=== PATIENT | female | born 1980 | race Caucasian/White ===

== ENCOUNTER 2020-01-08 09:58 | Outpatient (CLI) | payer OTHER, SELFPAY ==
--- NOTE | ~2020-01-08 | XR_ITS ---
XR chest 2V DATE: 01/08/2020 10:34 INDICATION: Chest pain, upper back pain, neck pain. Cannot swallow. TECHNIQUE: 2 views COMPARISON: 04/30/2017 two-view chest FINDINGS: Normal heart size. No hilar or mediastinal enlargement. No pulmonary infiltrate or consolid ation, pleural effusion or pulmonary vascular congestion or pneumothorax. IMPRESSION: Negative chest Reviewed, dictated and finalized at location B. IMPRESSION: Negative chest
--- NOTE | ~2020-01-08 | XR_ITS ---
EXAMINATION: XR thoracic spine 3V DATE: 01/08/2020 10:33 INDICATION: Back pain TECHNIQUE: AP, lateral and lateral swimmer's views of the thoracic spine were obtained. COMPARISON: 04/17/2017 FINDINGS: The vertebral body heights and alignment are normal. There is mild loss of intervertebral d isc space height at multiple levels in the thoracic spine. Small degenerative osteophytes project fro m the anterior endplates of multiple vertebral bodies. There is no fracture. IMPRESSION: 1. Mild thoracic spondylosis without acute findings or significant interval change. Reviewed, dictated and finalized at location A. IMPRESSION: 1. Mild thoracic spondylosis without acute findings or significant interval [facility].
--- NOTE | ~2020-01-08 | XR_ITS ---
EXAMINATION:XR_CERV2-3V_CR DATE: 01/08/2020 10:33 INDICATION: Neck pain TECHNIQUE: AP, lateral, and odontoid views of the cervical spine are provided. COMPARISON: 04/17/2017 FINDINGS: Alignment is normal. There is straightening of the cervical spine which can be positional o r due to muscular spasm. The odontoid is intact. No fracture is identified. Vertebral body heights an d disk spaces are normal. Prevertebral soft tissues are normal. Small degenerative osteophytes projec t from the anterior endplates of multiple vertebral bodies. IMPRESSION: 1. Mild cervical spondylosis without acute findings. Reviewed, dictated and finalized at location A.
[2020-01-08 10:10] LABS: Basophils Absolute Auto 0.02 K/mm3 (0.00-0.10); Basophils Percent Auto 0.3 % (0.0-1.0); Eosinophils Absolute Auto 0.07 K/mm3 (0.02-0.50); Eosinophils Percent Auto 0.9 % (1.0-6.0); Hematocrit 42.5 % (35.0-49.0); Hemoglobin 14.4 g/dL (12.0-15.0); Immature Granulocyte Absolute 0.06 K/mm3 (0.00-0.00); Immature Granulocyte Percent A 0.8 % (0.0-0.0); Lymphocytes Absolute Auto 1.45 K/mm3 (1.10-4.50); Lymphocytes Percent Auto 18.5 % (18.0-42.0); Mean Corpuscular HGB Conc 33.9 g/dL (32.0-36.0); Mean Corpuscular Hemoglobin 31.2 pg (27.0-31.0); Mean Platelet Volume 9.6 fl (9.2-11.8); Monocytes Absolute Auto 0.68 K/mm3 (0.10-0.90); Monocytes Percent Auto 8.7 % (2.0-11.0); Neutrophils Absolute Auto 5.6 K/mm3 (1.7-7.2); Neutrophils Percent Auto 70.8 % (50.0-70.0); Platelet Count Result 220 K/mm3 (150-420); Red Blood Count 4.62 M/mm3 (4.20-5.40); Red Cell Distribution Width 12.7 % (11.6-14.4); White Blood Count 7.8 K/mm3 (4.8-10.8)
== END 2020-01-08 09:59 | disposition home or self-care (01) ==
PROVIDERS: PCP Internal Medicine; Visit Provider Internal Medicine
DX: M54.2 Cervicalgia (principal); R07.9 Chest pain, unspecified; M54.6 Pain in thoracic spine
CPT/HCPCS: 36415; 71046; 72040; 72072; 85025

== ENCOUNTER 2020-01-09 09:17 | Outpatient (CLI) | payer OTHER, SELFPAY ==
--- NOTE | ~2020-01-09 | XR_ITS ---
XR barium swallow DATE: 01/09/2020 09:41 INDICATION: Acute dysphagia TECHNIQUE: Fluoroscopy and rapid sequence spot radiographs of the esophagus during swallowing 0.3 minutes fluoroscopy time DAP: 3.913 COMPARISON: None FINDINGS: Normal deglutition and esophageal peristalsis. No stricture, mucosal fold thickening, ulcer ation, diverticulum or intraluminal mass lesion of the esophagus is detected. No hiatal hernia. IMPRESSION: Normal examination Reviewed, dictated and finalized at Location A. Reviewed, dictated and finalized at location B. IMPRESSION: Normal examination
== END 2020-01-09 09:18 | disposition home or self-care (01) ==
LOC: CHSIMG 09:19
PROVIDERS: PCP Internal Medicine; Visit Provider Internal Medicine
DX: R13.14 Dysphagia, pharyngoesophageal phase (principal)
CPT/HCPCS: 74220

== ENCOUNTER 2021-04-13 11:20 | Outpatient (CLI) | payer OTHER, SELFPAY ==
[2021-04-13 12:41] LABS: SARS-CoV-2 RNA PCR Positive (Negative)
== END 2021-04-13 11:21 | disposition home or self-care (01) ==
LOC: CHSLAB 11:23
PROVIDERS: PCP Internal Medicine; Visit Provider Internal Medicine
DX: U07.1 COVID-19 (principal)
CPT/HCPCS: C9803; U0003; U0005

== ENCOUNTER 2021-07-26 15:35 | Outpatient (CLI) | payer OTHER, SELFPAY ==
--- NOTE | ~2021-07-26 | MM_ITS ---
EXAMINATION: MM screening rolf BI w homer HISTORY: Screening mammogram, family history of breast cancer in her sister. TECHNIQUE: Craniocaudal and mediolateral oblique 3-D tomosynthesis images were obtained and synthetic 2-D images were generated. CAD analysis was submitted and interpreted. COMPARISON: 03/07/2019, 02/18/2018 BREAST PARENCHYMAL COMPOSITION: The breasts are heterogeneously dense, which may obscure small masses . FINDINGS: There is no evidence of suspicious mass, calcification, or architectural distortion to sugg est malignancy in either breast. There has been no suspicious interval change. IMPRESSION: 1. No mammographic evidence of malignancy. 2. Recommend routine screening mammography in one year. BI-RADS Category 1: Negative Reviewed, dictated and finalized at location A. [employer] PR[employer]ER
== END 2021-07-26 15:36 | disposition home or self-care (01) ==
LOC: ANHIMG 15:39
PROVIDERS: PCP Internal Medicine; Visit Provider Obstetrics & Gynecology
DX: Z12.31 Encounter for screening mammogram for malignant neoplasm of breast (principal)
CPT/HCPCS: 77063; 77067

== ENCOUNTER 2022-09-21 08:31 | Outpatient (CLI) | payer OTHER, SELFPAY ==
--- NOTE | ~2022-09-21 | MM_ITS ---
EXAMINATION: MM screening rolf BI w homer HISTORY: Screening TECHNIQUE: Craniocaudal and mediolateral oblique 3-D tomosynthesis images were obtained and synthetic 2-D images were generated. CAD analysis was submitted and interpreted. COMPARISON: Comparison to multiple prior studies sequentially, with oldest reviewed study dated 02/18. BREAST PARENCHYMAL COMPOSITION: The breasts are heterogeneously dense, which may obscure small masses . FINDINGS: There is no evidence of suspicious mass, calcification, or architectural distortion to sugg est malignancy in either breast. There has been no suspicious interval change. IMPRESSION: 1. No mammographic evidence of malignancy. 2. Recommend routine screening mammography in one year. BI-RADS Category 1: Negative Reviewed, dictated and finalized at location A.
== END 2022-09-21 08:32 | disposition home or self-care (01) ==
LOC: ANHIMG 08:33
PROVIDERS: PCP Internal Medicine; Visit Provider Obstetrics & Gynecology
DX: Z12.31 Encounter for screening mammogram for malignant neoplasm of breast (principal)
CPT/HCPCS: 77063; 77067

== ENCOUNTER 2022-11-06 13:43 | Outpatient (CLI) | payer OTHER, SELFPAY ==
[2022-11-06 14:08] LABS: Appearance Urine Clear (Clear); Bilirubin Urine Negative (Negative); Blood Urine Trace-Intact (Negative); Color Urine Light Yellow (Yellow); Glucose Urine UA Negative (Negative); Hematocrit 41.3 % (35.0-49.0); Hemoglobin 13.7 g/dL (12.0-15.0); Ketones Urine Negative (Negative); Leukocyte Esterase Ur Trace (Negative); Mean Corpuscular HGB Conc 33.2 g/dL (32.0-36.0); Mean Corpuscular Hemoglobin 29.5 pg (27.0-31.0); Mean Platelet Volume 10.7 fl (9.2-11.8); Nitrate Urine Negative (Negative); Platelet Count Result 154 K/mm3 (150-420); Protein Urine Negative (Negative); Red Blood Count 4.64 M/mm3 (4.20-5.40); Red Cell Distribution Width 12.7 % (11.6-14.4); Specific Grav Ur <= 1.005 (1.010-1.020); White Blood Count 2.3 K/mm3 (4.8-10.8)
[2022-11-06 14:13] LABS: Add Urine Microscopic? YES; RBC Urine 0-2 /hpf (0-2); WBC Urine None seen /hpf (0-3)
[2022-11-06 14:14] LABS: Bacteria Urine Trace /hpf; Squamous Epithelial Cell Urine Rare /hpf (Few)
[2022-11-06 14:23] LABS: Alanine Aminotransferase 80 U/L (14-59); Albumin Level 3.9 g/dL (3.4-5.0); Alkaline Phosphatase 58 U/L (46-116); Anion Gap 9 mmol/L (8-16); Aspartate Amino Transferase 42 U/L (15-37); Bilirubin,Total 0.4 mg/dL (0.00-1.00); Blood Urea Nitrogen 9 mg/dL (7-18); CRP 4.8 mg/dL (0.0-0.9); Carbon Dioxide 29 mmol/L (21-32); Chloride 99 mmol/L (98-108); Estimated Glomerular Filt Rate > 60; Glucose 104 mg/dL (70-99); Osmolality Calculated 282 mOsm/kg (285-295); Potassium 3.3 mmol/L (3.5-5.1); Sodium 137 mmol/L (136-145); Total Protein 7.8 g/dL (6.4-8.2)
[2022-11-06 14:56] LABS: Band Neutrophils Percent 6 % (0-6); Neutrophils Absolute Manual 1.56 K/mm3 (1.7-7.2); Neutrophils Percent Manual 62 % (46-73); Total Cells Counted 100
[2022-11-06 14:57] LABS: Basophils Percent Manual 0 % (0-1); Eosinophils Percent Manual 0 % (1-6); Lymphocytes Absolute Manual 0.66 K/mm3 (1.1-4.5); Lymphocytes Percent Manual 29 % (18-44); Monocytes Absolute Manual 0.06 K/mm3 (0.1-0.90); Monocytes Percent Manual 3 % (3-9); Platelet Estimate Adequate (Adequate)
[2022-11-06 15:11] LABS: Erythrocyte Sedimentation Rate 10 mm/hr (0-15)
[2022-11-06 15:39] LABS: HIV 1 P24 AG Negative (Negative); HIV 1/2 AB Negative (Negative)
[2022-11-06 16:24] LABS: Lactic Acid 0.6 mmol/L (0.4-2.0)
[2022-11-09 19:32] LABS: Lyme Disease Ab (IgM), Blot Negative (Negative); Lyme Disease Ab(IgG), Blot Negative (Negative)
[2022-11-10 19:20] LABS: CMV IgG Antibody 0.76 U/mL (<0.60)
[2022-11-11 22:21] LABS: Rickettsia rickettsii DNA, PCR NOT DETECTED
[2022-11-11 23:10] LABS: Hepatitis A Antibody IgM Nonreactive; Hepatitis B Core Antibody Nonreactive (Nonreactive); Hepatitis B Surface Antigen Nonreactive (Nonreactive); Hepatitis C Signal to Cutoff 0.02 ratio (<1.00); Hepatitis C Virus Antibody Nonreactive (Nonreactive)
== END 2022-11-06 13:44 | disposition home or self-care (01) ==
LOC: CHSLAB 13:46
PROVIDERS: PCP Internal Medicine; Visit Provider Internal Medicine
DX: R50.9 Fever, unspecified (principal); M25.50 Pain in unspecified joint; R63.0 Anorexia; R74.01 Elevation of levels of liver transaminase levels; D72.819 Decreased white blood cell count, unspecified
CPT/HCPCS: 36415; 80053; 80074; 81001; 83605; 85025; 85652; 86140; 86617; 86644; 86703; 87040; 87086; 87798

== ENCOUNTER → 2022-11-20 13:18 | Outpatient (CLI) | payer OTHER, SELFPAY ==
--- NOTE | ~2022-11-20 | CT_ITS ---
EXAMINATION: CT abdomen pelvis w con DATE: 11/20/2022 14:02 INDICATION: Diffuse abdominal pain. TECHNIQUE: Computed tomography (CT) of the abdomen and pelvis was performed with 100 cc Omnipaque 350 intravenous contrast. The dose-length product was 552.27 mGy-cm. Automated exposure control and iter ative reconstruction technique were employed. COMPARISON: None. FINDINGS: Lung bases are unremarkable. Heart size normal. No significant pleural or pericardial effus ion. Small amount of free fluid in the pelvis. No free air. The liver, spleen, pancreas, adrenal glands and kidneys are unremarkable. Gallbladder is present. Non obstructive bowel pattern. There is lower thoracic spondylosis. No significant vascular abnormality. No lymphadenopathy. IMPRESSION: 1. No acute abdominal abnormality. Reviewed, dictated and finalized at location L.
== END ==
PROVIDERS: PCP Internal Medicine; Visit Provider Internal Medicine
DX: R10.9 Unspecified abdominal pain (principal)
CPT/HCPCS: 74177; Q9967

== ENCOUNTER 2023-08-13 16:06 | Outpatient (RCR) | payer OTHER, SELFPAY ==
--- NOTE | 2023-08-13 17:09 | PTOPEVAL1 ---
Assessment and note entered by Andrew Rocha Evaluation Information Assessment Status Evaluation Diagnosis right proximal hamstrings injury Onset 08/07/23 Subjective Information Pt. reports that she initially injured the hamstring 9 years ago. She reports that she just got done on a long bike ride and was lifting someone from the ground. She felt a pop in the hamstring and painful for a very long time. She reports she underwent MRI couple months after the injury and suffered an ischial tuberosity tear. She reports that she experiences a achy feeling in the area of the right hamstring. She reports that going up hills is difficult and the right leg pain increases. She reports she enjoys hiking and has a big hike planned for this year. She reports her goal is to decrease the pain in the right hamstring. Reported Pain Level Pain Score 1: Self Report Assessment PT Clinical Summary Pt. is a 43 year old female who enters the clinic with right hamstring injury. She presents with impaired ROM, impaired flexibility and generalized weakness, as well as pain on this date. Continued skilled PT is indicated to improve these areas through tissue mobilization, modality care and eccentric strengthening activities to improve IADL performance. Plan of Care Interventions Electrical Stimulation,Hot Pack/Cold Pack,Manual Therapy,Neuro Re-education,Patient/Caregiver Educati,Therapeutic Activities,Therapeutic Exercise PT Services Indicated Yes Treatment Frequency and 2x/week x 8 visits Duration These treatments will address the objective and functional deficits as defined above. The patient will be advanced safely and appropriately in order for the patient to progress towards his/her prior level of function. Additional exercises will be introduced and as well as a comprehensive home exercise program upon discharge, if needed, ?to ensure carryover of functional gains achieved in the clinic. This treatment plan has been reviewed and agreement upon by the patient.
--- NOTE | 2023-08-13 17:10 | OPREHPOC ---
Outpatient Therapy Plan of Care This is a Multidisciplinary Plan of Care that may contain components documented by all disciplines (PT, OT, and ST.) PT Problem 1 PT Problem #1 Knowledge Deficit PT Goal 1 Goal Independent with a HEP addressing strength and flexibility and strength Target Visit 2 PT Problem 2 PT Problem #2 Impaired Flexibility PT Goal 1 Goal Pt. will present at 10 degrees from full knee extension on the right with the 90/90 test Target Visit 8 PT Problem 3 PT Problem #3 Impaired Functional Mobil PT Goal 1 Goal pt. will present with less than 5% limitation on the LEFS and demonstrate the ability to jog for 10 minutes or greater without pain increase.
--- NOTE | 2023-08-16 07:14 | PCPTNOTE ---
Patient cancelled and reports she is unable to make her session today.
--- NOTE | 2023-08-20 16:59 | PCPTNOTE ---
pt cancelled due to still being out of town.
== END 2023-08-13 20:00 | disposition home or self-care (01) ==
LOC: CHSPT 16:06
PROVIDERS: Visit Provider Orthopaedic Surgery
DX: S76.301S Unspecified injury of muscle, fascia and tendon of the posterior muscle group at thigh level, right thigh, sequela (principal)
CPT/HCPCS: 97110; 97140; 97161

== ENCOUNTER 2024-08-27 08:48 | Outpatient (CLI) | payer OTHER, SELFPAY ==
--- NOTE | ~2024-08-27 | MM_ITS ---
EXAMINATION: MM screening rolf BI w homer HISTORY: Screening mammogram, family history of breast cancer in her sister. TECHNIQUE: Craniocaudal and mediolateral oblique 3-D tomosynthesis images were obtained and synthetic 2-D images were generated. CAD analysis was submitted and interpreted. COMPARISON: 09/21/2022, 07/26/2021 BREAST PARENCHYMAL COMPOSITION:Dense: The breasts are heterogeneously dense, which may obscure small masses. FINDINGS: No suspicious mass, calcification, or architectural distortion are identified in either maribeth ast to suggest malignancy. There has been no suspicious interval change. IMPRESSION: No mammographic evidence of malignancy. Recommend routine screening mammography in one year. BI-RADS Category 1: Negative Reviewed, dictated and finalized at location . LY NURSE PRACTITIONER
--- OUTSIDE RECORDS SUMMARY | 2024-08-27 09:22 | XMS_ITS | Patient Health Summary ---
Author Organization [facility] Address [address] [place] [address] Care Team Providers Care Pie Topper Name Role Phone Unavailable Primary Care Provider Unavailabl e Note from [facility],non-owned Affiliates and Associated Physician Practices is amultiple site organization consisting of ambulatory clinics and hospital sitesin [place], [place] and [place]. This disclosure is being madepursuant to the Care Everywhere program and may not contain all information available regarding this patient. Last updated 18.[facility] Social History Tobacco Use Types Packs/Day Years Used Date Smoking Tobacco: Never Assessed Sex and Gender Information Value Date Recorded Sex Assigned at Not on file Gender Identity Not on file Sexual Orientation Not on file
--- OUTSIDE RECORDS SUMMARY | 2024-08-27 09:22 | XMS_ITS | Clinical Summary ---
Author Organization [facility] [employer] Address [address] [place] [address] Care Team Providers Care Tourist Adviser Name Role Phone Unavailable Primary Care Provider Unavailabl e Source Comments [facility] [employer],non-[facility] Affiliates and Associated Physician Practices is amultiple site organization consisting of ambulatory clinics and hospital sitesin [place], [place], [place] and [place]. This disclosure is being madepursuant to the Care Everywhere program and may not contain all information available regarding this patient. Last updated 18.[facility] [employer] Social History Tobacco Use Types Packs/Day Years Used Date Smoking Tobacco: Never Assessed Sex and Gender Information Value Date Recorded Sex Assigned at Not on file Gender Identity Not on file Sexual Orientation Not on file Plan of Treatment Health Maintenance Due Date Last Done Comments COLOGUARD (AGES 45-75) - COL ON CA SCREENING 1978 COLON MONITORING 1978 COLONOSCOPY - COLON CA SCREENING 1978 CT COLONOGRAPHY - COLON CA SCREENING 1978 Colorectal Cancer Screening 1978 FIT - COLON CA SCREENING 1978 FLEX SIG - COLON CA SCREENING 1978 LIPID TESTING 1978 MAMMOGRAM 1978 PAP SMEAR 1978 HIV SCREENING 1993 HEPATITIS C SCREENING 01/18/1996 DTAP/TDAP/TD VACCINES (1 - Tdap) 1997 HEPATITIS B VACCINE (1 of 3 - 19+ 3-dose series) 1997 COVID-19 VACCINE (2023-2 5 season) 2024 INFLUENZA VACCINE (#1) 2024 DEPRESSION SCREENING 07/02/2024 ZOSTER VACCINE (1 of 2) 01/23/2028 HIB VACCINE Aged Out No longer eligi ble based on patient's age to complete this topic HPV VACCINE Aged Out No longer eligi ble based on patient's age to complete this topic MENINGOCOCCAL (Group B) VACCINE Aged Out No longer eligible based on patient's age to complete this topic MENINGOCOCCAL VACCINE Aged Out No bryan alcides eligible based on patient's age to complete this topic PNEUMOCOCCAL VACCINE Aged Out No long er eligible based on patient's age to complete this topic
--- OUTSIDE RECORDS SUMMARY | 2024-08-27 09:22 | XMS_ITS | Referral Summary ---
Author Organization [facility] Address [address] [place] [id number] Care Team Providers Care Sanitation Tank Washer Name Role Phone Jose Webb MD Primary Care Provider Allergies No known active allergies Medications No known medications Active Problems No known active problems Social History Tobacco Use Types Packs/Day Years Used Date Smoking Tobacco: Never Smokeless Tobacco: Never Tobacco Cessation:Counseling Given: Not Answered Personal Safety Answer Date Recorded Have you ever been in or are you currently in a harmful physical or emotional relationship or is someone making you feel afraid or unsafe? 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 Gender Identity Female 11/30/2022 9:10 AM CDT Sexual Orientation Not on file Last Filed Vital Signs Vital Sign Reading Time Taken Comments Blood Pressure 127/85 12/07/2022 2:14 PM CDT Pulse 69 12/07/2022 2:14 PM CDT Temperature 36.6 C (97.8 F) 12/07/2022 2:14 PM CDT Respiratory Rate 18 11/08/2022 6:20 PM CDT Oxygen Saturation 100% 11/08/2022 6:20 PM CDT Inhaled Oxygen Concentration - - Weight 72.1 kg (159 lb) 12/07/2022 2:14 PM CDT Height 167 cm (5' 5.75 ) 12/07/2022 2:14 PM CDT Body Mass Index 25.86 12/07/2022 2:14 PM CDT Plan of Treatment Not on file Procedures Procedure Name Priority Date/Time Associated Diagnosis Comments HEPATITIS PANEL, ACUTE STAT 11/08/2022 3:03 PM CDT from Last 3 Months or Most Recently Relevant to Health Maintenance Results * Hepatitis panel, acute (11/08/2022 3:03 PM CDT) Hep A IgM Nonreactive Nonreactive [facility] Hep B core IgM Nonreactive Nonreactive [facility] Hep C Ab Nonreactive [facility] Comment:Antibodies to HCV no t detected. Does NOT exclude the possibility of recent exposure to HCV. Current interpretive data was last revised on 22 HepBsAg Nonreactive Nonreactive [facility] Blood 11/08/2022 3:03 PM CDT 11/08/2022 3:08 PM CDT us Prerak Tyshawn Estrada MD LAB MICROBIOLOGY - GEN ERAL ORDERABLES Final Result [facility] Department [place] [address] from Last 3 Months or Most Recently Relevant to Health Maintenance Insurance [place] [employer] OPEN ACCESS Care Teams Sanitation Tank Washer Relationship Specialty Start Date End Date Jose Webb MD [address] [place] [address] PCP - General 08/16/17
--- OUTSIDE RECORDS SUMMARY | 2024-08-27 09:22 | XMS_ITS ---
Author Organization [facility] Address [address] [place], [place] [id number] Care Team Providers Care Canine Deputy Name Role Phone Charley Webb Unavailable Unavailable STEVE BULL Unavailable [phone] Allergies No Known Allergies REASON FOR VISIT [facility] Vital Signs Height 66 in 02/07/2024 Weight 170 lbs 02/07/2024 BMI 27.44 kg/m2 02/07/2024 Height-cm 167.64 cm 02/07/2024 Weight-kg 77.11 kg 02/07/2024 Encounters Encounter Location Date Provider Diagnosis [address] [id number] 02/07/2024 STEVE BULL Hallux valgus (acquired), right foot M20.11 ; Hallux valgus (acquired), left foot M20.12 ; Flat foot [pes planus] (acquired), right foot M21.41 and Flat foot [pes planus] (acquired), left foot M21.42 Assessments Encounter Date Diagnosis (ICD Code) Assessment Notes Treatment Notes Treatment Clinical Notes Section Notes 02/07/2024 Hallux valgus (acquired), right foot (ICD-10 - M20.11) 02/07/2024 Hallux valgus (acquired), left foot (ICD-10 - M20.12) Discussed asymptomatic bunion deformity to left foot. Discussed appropriate shoe gear as well as medical grade orthotics to prevent the progression of the deformity. Discussed joint mobilization techniques. Surgical intervention is not warranted at this time. 02/07/2024 Flat foot [pes planus] (acquired), right foot (ICD-10 - M21.41) 02/07/2024 Flat foot [pes planus] (acquired), left foot (ICD-10 - M21.42) Patient educated on etiology and treatment options for flexible flat foot deformity. Educated patient on how a flexible flat foot deformity can in turn result in pathology such as hammer toe, bunions, equinus, neuromas. Recommend use of custom foot inserts to help alleviate plantar peak pressures and accomodate for digital deformity to feet. Plan Of Treatment Treatment Notes Assessment Notes Hallux valgus (acquired), left foot Disc ussed asymptomatic bunion deformity to left foot. Discussed appropriate shoe gear as well as medical grade orthotics to prevent the progression of the deformity. Discussed joint mobilization techniques. Surgical intervention is not warranted at this time. Flat foot [pes planus] (acqu ired), left foot Patient educated on etiology and treatme nt options for flexible flat foot deformity. Educated patient on how a flexible flat foot deformity can in turn result in pathology such as hammer toe, bunions, equinus, neuromas. Recommend use of custom foot inserts to help alleviate plantar peak pressures and accomodate for digital deformity to feet. Next Appt Details Follow Up: prn, Reason: Progress Notes * Helga ORTEGADOB:1980 (44 yo F)Acc No.[id number]:02/07/2024 Progress Notes Patient: Helga REYNA Provider: Gamaliel BULL :1980 A ge:44 Y S ex:Female Date:02/07/2024 Address:[address] [place], [place] [id number] Subjective: * Chief Complaints: * 1 . Bunyon care. * HPI: H PI: New Complaint P atient presents for a new patient consultation., Patient complains of an issue to a bunion on the left foot. Patient states that the bunion is starting to rub on shoes and get sore. , Duration of problem is one year. , MA: dave. * ROS: G eneral / Constitutional: Patient denies w eakness. R espiratory: Patient denies c hronic cough, shortness of breath, sputum production. C ardiovascular: Patient denies c hest pain, history of [place], irregular heartbeat. M usculoskeletal: Patient complains of f lat feet/ planus, bunions, joint pain. P eripheral Vascular: Patient denies b lanching of skin, cold extremities, decreased sensation in extremities. S kin: Patient denies f ungal nails, itching. N eurologic: Patient denies d izziness, gait abnormality, headache. * Medical History: A nemia. * Allergies: N .K.D.A. Objective: * Vitals: S hoe Size: 8.5, Wt:170lbs, Wt-k.11 kg, Ht: 66 in, Ht-cm: 167.64 cm, BMI:27.44Index, Body Surface Area: 1.89. * Examination: P hysical Examination: V ascular: Dorsalis Pedis pulse noted at 2/4 right foot and 2/4 left foot and Posterior Tibial pulse noted at 2/4 right foot and 2/4 left foot, Capillary refill times noted to be less than three seconds x ten, Temperature gradient noted to be warm to cool to bilateral foot, pedal hair present to bilateral foot and no varicosities are noted Dermatologic: there are no open lesions, no signs of active clinical infection, no erythema noted, no ecchymoses, nails are at hygienic length during todays visit, interdigital spaces clean dry and intact Neurology: protective sensation intact to light touch bilateral digits one through five, vibratory sensation intact to first metatarsophalangeal joint bilaterally Musculoskeletal: minimal pain to palpation medial prominence of first metatarsal head left foot, left foot mild bunion deformity is noted with no signs of first ray hypermobility with root test, ankle joint range of motion 0 degree with knee extended bilateral side, arch height 2/5 NWB bilateral 1/5 WB, no calf pain noted b/l, too many toes signs noted on weight bearing exam. Assessment: * Assessment: 1. H allux valgus (acquired), right foot - M20.11 (Primary) 2 . H allux valgus (acquired), left foot - M20.12 3 . 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 F lat foot [pes planus] (acquired), left foot Notes: Patient educated on etiology and treatment options for flexible flat foot deformity. Educated patient on how a flexible flat foot deformity can in turn result in pathology such as hammer toe, bunions, equinus, neuromas. Recommend use of custom foot inserts to help alleviate plantar peak pressures and accomodate for digital deformity to feet. * Follow Up: p rn * Billing Information: * Visit Code: 25283 Office Visit, New Pt., Level 3. * Procedure Codes: * Sign off status: Completed true * Provider: Gamaliel BULL Date: 0 02/07/2024 Generated for Yady yost/Scooter/Gena on: 0 08/27/2024 09:22 AM HAND TILE MAKER History and Physical Notes * HPI (History of Present Illness) Category Sub-Category Detail Notes Category Not es HPI New Complaint Patient presents for a new patient consultation., Patient complains of an issue to a bunion on the left foot. Patient states that the bunion is starting to rub on shoes and get sore. , Duration of problem is one year. , MA: mca Examination Category Sub-Category Detail Notes Category Not es Physical Examination Vascular: Dorsalis Pedis pulse noted at 2/4 right foot and 2/4 left foot and Posterior Tibial pulse noted at 2/4 right foot and 2/4 left foot, Capillary refill times noted to be less than three seconds x ten, Temperature gradient noted to be warm to cool to bilateral foot, pedal hair present to bilateral foot and no varicosities are noted Dermatologic: there are no open lesions, no signs of active clinical infection, no erythema noted, no ecchymoses, nails are at hygienic length during todays visit, interdigital spaces clean dry and intact Neurology: protective sensation intact to light touch bilateral digits one through five, vibratory sensation intact to first metatarsophalangeal joint bilaterally Musculoskeletal: minimal pain to palpation medial prominence of first metatarsal head left foot, left foot mild bunion deformity is noted with no signs of first ray hypermobility with root test, ankle joint range of motion 0 degree with knee extended bilateral side, arch height 2/5 NWB bilateral 1/5 WB, no calf pain noted b/l, too many toes signs noted on weight bearing exam
--- OUTSIDE RECORDS SUMMARY | 2024-08-27 09:22 | XMS_ITS | Clinical Summary ---
Author Organization [facility] Address [address] [place] [id number] Care Team Providers Care Power Electronics Engineer Name Role Phone Jose Webb MD Primary Care Provider Allergies No known active allergies Medications No known medications Active Problems No known active problems Surgical History Surgery Date Site/Laterality Comments WISDOM TOOTH EXTRACTION Oral Surgery Tooth Extraction [place] Tooth - (Added by TW Conv) ID DSTRJ NEUROLYTIC AGENT OT HER PERIPHERAL NERVE Nerve Ablation Other Branch - CEST (Added by TW Conv) Family History Medical History Relation Name Comments Hypertension Brother Family history of hypertension - (Added by TW Conv) Diabetes Father Family history of diabetes mellitus - (Added by TW Conv) Hypertension Father Family history of hypertension - (Added by TW Conv) Hypertension Mother Family history of hypertension - (Added by TW Conv) Relation Name Status Comments Brother Father Mother Social History Tobacco Use Types Packs/Day Years [...] on file 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 Gender Identity Female 11/30/2022 9:10 AM CDT Sexual Orientation Not on file Obstetrics History Last Filed Vital Signs Vital Sign Reading [...] 12/07/2022 2:14 PM CDT Plan of Treatment Health Maintenance Due Date Last Done Comments Breast Cancer Screening-Mammogram 1978 Cervical Cancer Screening 1978 Colon Cancer Screening-Colonoscopy 1978 Depression Screening 1978 DTaP/Tdap/Td Vaccine (1 - Tdap) 1989 Hepatitis B Screening 01/23/1996 Regular Well Visit/Exam 18-64 01/23/1996 Influenza Vaccine (#1) 2024 Hepatitis C Screening Completed 11/08/2022 HPV Vaccines Aged Out No longer eligi ble based on patient's age to complete this topic Pneumococcal vaccine <65 Aged Out No longer eligible based on patient's age to complete this topic Procedures Procedure Name Priority Date/Time Associated Diagnosis Comments HEPATITIS PANEL, ACUTE STAT 11/08/2022 3:03 PM CDT from Last 3 Months or Most Recently Relevant to Health Maintenance Results * Hepatitis panel, acute (11/08/2022 3:03 PM CDT) Hep A IgM Nonreactive Nonreactive [facility] Hep B core IgM Nonreactive Nonreactive [facility] Hep C Ab Nonreactive Nonreactive [facility] Comment:Antibodies to HCV no t detected. Does NOT exclude the possibility of recent exposure to HCV. Current interpretive data was last revised on 22 HepBsAg Nonreactive Nonreactive [facility] Blood 11/08/2022 3:03 PM CDT 11/08/2022 3:08 PM CDT us Prerak Tyshawn Estrada MD LAB MICROBIOLOGY - GEN ERAL ORDERABLES Final Result [facility] [place] [address] from Last 3 Months or Most Recently Relevant to Health Maintenance [facility] [employer] OPEN ACCESS Care Teams Power Electronics Engineer Relationship Specialty Start Date End Date Jose Webb MD [address] [place] [address] PCP - General 08/16/17
--- OUTSIDE RECORDS SUMMARY | 2024-08-27 09:22 | XMS_ITS | Referral Summary ---
Author Organization [facility] Address [address] [place] [address] Care Team Providers Care Audio Video Repairer Name Role Phone Unavailable Primary Care Provider Unavailabl e Source Comments [facility],non-Critical access hospitalates and Associated Physician Practices is amultiple site organization consisting of ambulatory clinics and hospital sitesin [place], [place], [place] and [place]. This disclosure is being madepursuant to the Care Everywhere program and may not contain all information available regarding this patient. Last updated 18.[facility] [employer] Social History Tobacco Use Types Packs/Day Years Used Date Smoking Tobacco: Never Assessed Sex and Gender Information Value Date Recorded Sex Assigned at Not on file Gender Identity Not on file Sexual Orientation Not on file Plan of Treatment Not on file
== END 2024-08-27 08:49 | disposition home or self-care (01) ==
LOC: ANHIMG 08:51
PROVIDERS: PCP Internal Medicine; Visit Provider Obstetrics & Gynecology
DX: Z12.31 Encounter for screening mammogram for malignant neoplasm of breast (principal)
CPT/HCPCS: 77063; 77067